=== PATIENT | male | born 1980 | race Caucasian/White ===

== ENCOUNTER 2021-04-05 20:59 | Emergency (ER) | payer OTHER ==
[~2021-04-05] VITALS: Ht 188 cm; Wt 57.6 kg
[~2021-04-05 20:59] MED LIST: TERBINAFINE HC250 MG PO
[2021-04-05] MEDS ORDERED: SODIUM CHLORIDE 0.9% 1000ML 1,000 ML IV SCH (21:15)
== END 2021-04-05 23:48 | disposition home or self-care (01) ==
LOC: ER 21:06
DX: M25.512 Pain in left shoulder (principal); L72.3 Sebaceous cyst; W01.0XXA Fall on same level from slipping, tripping and stumbling without subsequent striking against object, initial encounter; Y93.01 Activity, walking, marching and hiking; Q21.0 Ventricular septal defect; F17.210 Nicotine dependence, cigarettes, uncomplicated
CPT/HCPCS: 71101; 99283